=== PATIENT | female | born 1955 | race Caucasian/White ===

== ENCOUNTER → 2016-11-19 | Outpatient (CLI) | payer OTHER ==
--- NOTE | 2016-11-19 14:16 | RADRPT ---
EXAM DATE/TIME: 11/19/2016 10:32 [facility] COMPARISON: No previous studies available for comparison. INDICATIONS : Lower back pain radiating down left leg. MEDICAL HISTORY : Cervical cancer with scraping SURGICAL HISTORY : Hysterectomy. section. wrist surgery, breat augmentation, cervical scraping ENCOUNTER: [facility] ACUITY: 7-11 months PAIN SCORE: 3/10 LOCATION: Left leg TECHNIQUE: Multiplanar multisequence MRI of the lumbar spine was performed without contrast. FINDINGS: The most caudal appearing lumbar vertebra is numbered as L5. VERTEBRAE: Homogeneous signal. Normal alignment. CONUS: Normal level and configuration. Tiny cortical renal cysts are seen on the left. T12-L1: The thecal sac has a normal diameter. No evidence of disc bulge or protrusion. The neural foramina are patent bilaterally. L1-L2: The thecal sac has a normal diameter. No evidence of disc bulge or protrusion. The neural foramina are patent bilaterally. L2-L3: There is disc desiccation and disc space height loss with a minimal broad-based bulge. Lateral recess es, central canal, and neural foramina are patent. L3-L4: The thecal sac has a normal diameter. No evidence of disc bulge or protrusion. The neural foramina are patent bilaterally. L4-L5: There is a minimal broad-based disc bulge. Lateral recesses and central canal are patent. Mild ligame ntum flavum hypertrophy and bony hypertrophy of the facets. Neural foramina are patent. L5-S1: There is disc desiccation and disc space height loss with a broad-based disc bulge which abuts the le ft S1 nerve root within the lateral recess. Right lateral recess and central canal are patent. Neural foramina are patent. CONCLUSION: 1. Degenerative changes. The only area of neural impingement involves the left S1 nerve root within t he lateral recess due to a disc bulge. Central canal and neural foramina are otherwise patent. Karl Joe Jr., MD on November 19, 2016 at 14:09 Board Certified Radiologist. This report was verified electronically.
== END ==
LOC: HRAD 09:56
PROVIDERS: ATTEND Orthopaedic Surgery
DX: M51.26 Other intervertebral disc displacement, lumbar region (principal)
CPT/HCPCS: 72148

== ENCOUNTER → 2017-05-01 | Outpatient (CLI) | payer OTHER ==
--- NOTE | 2017-05-01 14:52 | RADRPT ---
EXAM DATE/TIME: 05/01/2017 14:42 [facility] COMPARISON: No previous studies available for comparison. INDICATIONS : Lightheaded and dizzy. MEDICAL HISTORY : Chronic obstructive pulmonary disease. Atrial fibrillation. SURGICAL HISTORY : None. ENCOUNTER: Initial ACUITY: 7 - 11 months PAIN SCORE: 0/10 LOCATION: Bilateral chest FINDINGS: PA and lateral views of the chest demonstrate the lungs to be symmetrically aerated without evidence of mass, infiltrate or effusion. The cardiomediastinal contours are unremarkable. Osseous structure s are intact. CONCLUSION: No acute cardiopulmonary disease. Karl Trujillo MD on May 01, 2017 at 14:50 Board Certified Radiologist. This report was verified electronically.
== END ==
LOC: HRAD 14:23
PROVIDERS: ATTEND Family Medicine
DX: Z87.891 Personal history of nicotine dependence (principal)
CPT/HCPCS: 71020

== ENCOUNTER 2017-06-15 12:00 | Emergency (ER) | payer OTHER ==
[~2017-06-15 12:00] MED LIST: ASPI1TAB69 PO; CLON0.5T PO; CYCL10TA PO; GABA600T PO; VARE1PAK3 PO
[2017-06-15 12:01] VITALS: BP 146/70; PULSE 94; RESP 16; TEMP 98; O2SAT 96
--- NOTE | 2017-06-15 12:12 | PD ---
HPI Chief Complaint: GI Complaint Time Seen by Provider: 12:11 Travel History International Travel<30 days: No Contact w/Intl Traveler<30days: No Traveled to known affect area: No History of Present Illness HPI 62-year-old female presents emergency department for evaluation of multiple complaints. Patient states that she has a history of at least 8 TIAs. She believes that she had a TIA on Thursday, 3 days ago. She states that she began having difficulty speaking. This resolved on its own but she states she has had a headache with dizziness throughout the week and with associated nausea and vomited one time. She reports contacting Dr. Diez her primary care provider, with whom she has a 4:10 PM appointment today and tells me she was advised to come to the emergency department. Patient denies any new focal deficits or weakness. She denies a chest or tightness. No difficulty breathing. She has no other symptoms to report. PFSH Past Medical History Cardiovascular Problems: Yes ("Hole in my heart") COPD: Yes Cerebrovascular Accident: Yes Respiratory: Yes (COPD) ?: Not Past Surgical History Gynecologic Surgery: Yes ( X2) Hysterectomy: Yes Other Surgery: Yes (BREAST AUGMENTATION X 3 ) Social History Alcohol Use: Yes Tobacco Use: Yes (1 PPD) Substance Use: No Allergies-Medications (Allergen,Severity, Reaction): Coded Allergies: No Known Allergies (Verified Adverse Reaction, Unknown, 06/15/17) Reported Meds & Prescriptions Reported Meds & Active Scripts Active Diflucan (Fluconazole) 150 Mg Tab 150 Mg PO ONCE Zofran Odt (Ondansetron Odt) 4 Mg Tab 4 Mg SL Q8HR PRN Clonazepam 0.5 Mg Tab 0.5 Mg PO TID Chantix Starting Month Salvador (Varenicline) 0.5 mg X 11 & 1 mg X 42 Pack 1 Tab PO DIRECTED Flexeril (Cyclobenzaprine HCl) 10 Mg Tab 10 Mg PO TID Gabapentin 600 Mg Tab 600 Mg PO BID Reported Aspirin 81 Mg Tabdr 81 Mg PO DAILY Review of Systems Except as stated in HPI: all other systems reviewed are Neg Physical Exam Narrative GENERAL: Well-nourished female patient, ambulatory with a nonantalgic gait, no acute distress. SKIN: Focused skin assessment warm/dry. HEAD: Atraumatic. Normocephalic. EYES: Pupils equal and round. No scleral icterus. No injection or drainage. ENT: No nasal bleeding or discharge. Mucous membranes pink and moist. NECK: Trachea midline. No JVD. CARDIOVASCULAR: Regular rate and rhythm. No murmur appreciated. RESPIRATORY: No accessory muscle use. Clear to auscultation. Breath sounds equal bilaterally. GASTROINTESTINAL: Abdomen soft, non-tender, nondistended. Hepatic and splenic margins not palpable. MUSCULOSKELETAL: No obvious deformities. No clubbing. No cyanosis. No edema. NEUROLOGICAL: Awake and alert. No obvious cranial nerve deficits. Motor grossly within normal limits. Normal speech. Pronator drift. Data Data Last Documented VS Vital Signs Date Time Temp Pulse Resp B/P (MAP) Pulse Ox O2 Delivery O2 Flow Rate FiO2 06/15/17 15:32 06/15/17 13:38 18 06/15/17 13:38 100 Room Air 06/15/17 12:01 98.0 94 Orders Orders Electrocardiogram (06/15/17 12:26) Prothrombin Time / Inr (Pt) (06/15/17 12:26) Act Partial Throm Time (Ptt) (06/15/17 12:26) Complete Blood Count With Diff (06/15/17 12:26) Comprehensive Metabolic Panel (06/15/17 12:26) Urinalysis - C+S If Indicated (06/15/17 12:26) Ct Brain W/O Iv Contrast(Rout) (06/15/17 12:26) Chest, Single Ap (06/15/17 12:26) Ecg Monitoring (06/15/17 12:26) Iv Access Insert/Monitor (06/15/17 12:26) Oximetry (06/15/17 12:26) Sodium Chloride 0.9% Flush (Ns Flush) (06/15/17 12:30) Sodium Chlor 0.9% 1000 Ml Inj (Ns 1000 M (06/15/17 12:30) Ondansetron Inj (Zofran Inj) (06/15/17 12:30) Urine Culture (06/15/17 13:30) Ed Discharge Order (06/15/17 14:51) Labs Laboratory Tests Test 06/15/17 13:30 White Blood Count 4.7 TH/MM3 Red Blood Count 4.68 MIL/MM3 Hemoglobin 15.3 GM/DL Hematocrit 44.3 % Mean Corpuscular Volume 94.7 FL Mean Corpuscular Hemoglobin 32.7 PG Mean Corpuscular Hemoglobin Concent 34.5 % Red Cell Distribution Width 13.6 % Platelet Count 203 TH/MM3 Mean Platelet Volume 7.7 FL Neutrophils (%) (Auto) 49.0 % Lymphocytes (%) (Auto) 37.8 % Monocytes (%) (Auto) 9.7 % Eosinophils (%) (Auto) 2.6 % Basophils (%) (Auto) 0.9 % Neutrophils # (Auto) 2.3 TH/MM3 Lymphocytes # (Auto) 1.8 TH/MM3 Monocytes # (Auto) 0.5 TH/MM3 Eosinophils # (Auto) 0.1 TH/MM3 Basophils # (Auto) 0.0 TH/MM3 CBC Comment DIFF FINAL Differential Comment Prothrombin Time 10.0 SEC Prothromb Time International Ratio 1.0 RATIO Activated Partial Thromboplast Time 25.0 SEC Urine Color LIGHT-YELLOW Urine Turbidity CLEAR Urine pH 5.0 Urine Specific [place] 1.003 Urine Protein NEG mg/dL Urine Glucose (UA) NEG mg/dL Urine Ketones NEG mg/dL Urine Occult Blood NEG Urine Nitrite NEG Urine Bilirubin NEG Urine Urobilinogen LESS THAN 2.0 MG/DL Urine Leukocyte Esterase NEG Urine Squamous Epithelial Cells <1 /hpf Urine Bacteria RARE /hpf Microscopic Urinalysis Comment CATH-CULTURE IND Blood Urea Nitrogen 5 MG/DL Creatinine 0.68 MG/DL Random Glucose 92 MG/DL Total Protein 7.2 GM/DL Albumin 3.9 GM/DL Calcium Level 8.9 MG/DL Alkaline Phosphatase 87 U/L Aspartate Amino Transf (AST/SGOT) 33 U/L Alanine Aminotransferase (ALT/SGPT) 25 U/L Total Bilirubin 0.4 MG/DL Sodium Level 130 MEQ/L Potassium Level 4.3 MEQ/L Chloride Level 96 MEQ/L Carbon Dioxide Level 28.8 MEQ/L Anion Gap 5 MEQ/L Estimat Glomerular Filtration Rate 88 ML/MIN [facility] Medical Decision Making Medical Screen Exam Complete: Yes Emergency Medical Condition: Yes Medical Record Reviewed: Yes Differential Diagnosis TIA versus CVA versus vertigo versus electrolyte-abnormality Narrative Course 62-year-old female presents versus department for evaluation. Patient appears without distress. Neuro exam is nonfocal. Laboratory Tests Test 06/15/17 13:30 White Blood Count 4.7 TH/MM3 Red Blood Count 4.68 MIL/MM3 Hemoglobin 15.3 GM/DL Hematocrit 44.3 % Mean Corpuscular Volume 94.7 FL Mean Corpuscular Hemoglobin 32.7 PG Mean Corpuscular Hemoglobin Concent 34.5 % Red Cell Distribution Width 13.6 % Platelet Count 203 TH/MM3 Mean Platelet Volume 7.7 FL Neutrophils (%) (Auto) 49.0 % Lymphocytes (%) (Auto) 37.8 % Monocytes (%) (Auto) 9.7 % Eosinophils (%) (Auto) 2.6 % Basophils (%) (Auto) 0.9 % Neutrophils # (Auto) 2.3 TH/MM3 Lymphocytes # (Auto) 1.8 TH/MM3 Monocytes # (Auto) 0.5 TH/MM3 Eosinophils # (Auto) 0.1 TH/MM3 Basophils # (Auto) 0.0 TH/MM3 CBC Comment DIFF FINAL Differential Comment Prothrombin Time 10.0 SEC Prothromb Time International Ratio 1.0 RATIO Activated Partial Thromboplast Time 25.0 SEC Urine Color LIGHT-YELLOW Urine Turbidity CLEAR Urine pH 5.0 Urine Specific [place] 1.003 Urine Protein NEG mg/dL Urine Glucose (UA) NEG mg/dL Urine Ketones NEG mg/dL Urine Occult Blood NEG Urine Nitrite NEG Urine Bilirubin NEG Urine Urobilinogen LESS THAN 2.0 MG/DL Urine Leukocyte Esterase NEG Urine Squamous Epithelial Cells <1 /hpf Urine Bacteria RARE /hpf Microscopic Urinalysis Comment CATH-CULTURE IND Blood Urea Nitrogen 5 MG/DL Creatinine 0.68 MG/DL Random Glucose 92 MG/DL Total Protein 7.2 GM/DL Albumin 3.9 GM/DL Calcium Level 8.9 MG/DL Alkaline Phosphatase 87 U/L Aspartate Amino Transf (AST/SGOT) 33 U/L Alanine Aminotransferase (ALT/SGPT) 25 U/L Total Bilirubin 0.4 MG/DL Sodium Level 130 MEQ/L Potassium Level 4.3 MEQ/L Chloride Level 96 MEQ/L Carbon Dioxide Level 28.8 MEQ/L Anion Gap 5 MEQ/L Estimat Glomerular Filtration Rate 88 ML/MIN Last Impressions Head CT 06/15/17 1226 Signed Impressions: Service Date/Time: Thursday, June 15, 2017 13:57 - CONCLUSION: No acute intracranial disease. Giorgio Gandhi MD Chest X-Ray 06/15/17 1226 Signed Impressions: Service Date/Time: Thursday, June 15, 2017 12:40 - CONCLUSION: 1. COPD. 2. No evidence of acute process. Seferino Mae MD I have discussed the patient might physician. I have also discussed the patient with Dr. Dominguez, resident physician warehouse distribution specialist. He has recommended discharge to follow-up with her primary care provider Dr. Diez. Patient states she'll keep her 4:10 appointment for today. Diagnosis Primary Impression: Dizziness Referrals: Primary Care Physician Patient Instructions: Dizziness (ED), General Instructions Additional Instructions: Follow-up with your primary care provider within the next 2-3 days Continue medications as are he prescribed Return immediately with any acute worsening symptoms Med/Other Pt SpecificInfo: No Change to Meds Disposition: 01 DISCHARGE HOME Condition: Stable Margarita Mayen Jun 15, 2017 12:12
[2017-06-15] MEDS ORDERED: SODIUM CHLOR 0.9% 1000 ML INJ 1,000 ML IV ONE (12:30)
[2017-06-15] MEDS ORDERED: SODIUM CHLORIDE 0.9% FLUSH 10 ML FLUSH IVF PRN (12:30)
[2017-06-15] MEDS ORDERED: ONDANSETRON HCL 4 MG/2 ML VIAL IV PUSH ONE (12:30)
--- NOTE | 2017-06-15 13:10 | RADRPT ---
EXAM DATE/TIME: 06/15/2017 12:40 [facility] COMPARISON: No previous studies available for comparison. INDICATIONS : Short of breath. MEDICAL HISTORY : Chronic obstructive pulmonary disease. multiple TIAs, Atrial fibrillation, hole in her heart. SURGICAL HISTORY : None. ENCOUNTER: Initial ACUITY: 1 day PAIN SCORE: 0/10 LOCATION: Bilateral chest FINDINGS: A single view of the chest demonstrates the lungs to be hyperaerated without evidence of mass, infilt rate or effusion. The cardiomediastinal contours are unremarkable. Osseous structures are intact. CONCLUSION: 1. COPD. 2. No evidence of acute process. Seferino Mae MD on June 15, 2017 at 13:07 Board Certified Radiologist. This report was verified electronically.
[2017-06-15 13:38] VITALS: O2SAT 100
[2017-06-15 13:47] LABS: AUTOMATED NEUTROPHIL # 2.3 TH/MM3 (1.8-7.7); BASOPHIL % 0.9 % (0.0-2.0); EOSINOPHIL # 0.1 TH/MM3 (0-0.4); EOSINOPHIL % 2.6 % (0.0-4.0); HEMATOCRIT 44.3 % (35.0-46.0); HEMO FLAGS DIFF FINAL; LYMPH % 37.8 % (9.0-44.0); LYMPHOCYTE # 1.8 TH/MM3 (1.0-4.8); MEAN CELL VOLUME 94.7 FL (80.0-100.0); MEAN CORPUSCULAR HEMOGLOBIN 32.7 PG (27.0-34.0); MEAN CORPUSCULAR HGB CONC 34.5 % (32.0-36.0); MONO % 9.7 % (0.0-8.0); PLATELET COUNT 203 TH/MM3 (150-450); RED BLOOD COUNT 4.68 MIL/MM3 (4.00-5.30); RED CELL DISTRIBUTION WIDTH 13.6 % (11.6-17.2); WHITE BLOOD COUNT 4.7 TH/MM3 (4.0-11.0)
[2017-06-15 14:01] LABS: BACTERIA, URINE RARE /hpf; BLOOD, URINE NEG (NEG); COMMENT (UR) CATH-CULTURE IND; CULTURE IF INDICATED CATH CULTURE IND; GLUCOSE,URINE NEG (NEG); KETONE, URINE NEG (NEG); NITRITE,URINE NEG (NEG); SQUAMOUS EPITHELIAL CELL URINE <1 /hpf (0-5); URINE COLOR LIGHT-YELLOW (YELLW/STRAW)
[2017-06-15 14:04] LABS: ALT (GPT) 25 U/L (10-53); ANION GAP 5 MEQ/L (5-15); AST (GOT) 33 U/L (15-37); BICARBONATE 28.8 MEQ/L (21.0-32.0); BLOOD UREA NITROGEN 5 MG/DL (7-18); CHLORIDE 96 MEQ/L (98-107); GLOMERULAR FILTRATION RATE 88 ML/MIN (>89); POTASSIUM 4.3 MEQ/L (3.5-5.1); SODIUM (NA) 130 MEQ/L (136-145)
[2017-06-15 14:06] LABS: ALKALINE PHOSPHATASE 87 U/L (45-117); TOTAL BILIRUBIN ADULT 0.4 MG/DL (0.2-1.0)
--- NOTE | 2017-06-15 14:09 | RADRPT ---
EXAM DATE/TIME: 06/15/2017 13:57 [facility] COMPARISON: No previous studies available for comparison. INDICATIONS : Dizziness. History of TIA. RADIATION DOSE: 31.31 CTDIvol (mGy) MEDICAL HISTORY : Cerebrovascular disease. Cardiovascular disease Chronic obstructive pulmonary disease. SURGICAL HISTORY : None. ENCOUNTER: Initial ACUITY: 1 day PAIN SCALE: 0/10 LOCATION: cranial TECHNIQUE: Multiple contiguous axial images were obtained of the head. Using automated exposure control and adj ustment of the mA and/or kV according to patient size, radiation dose was kept as low as reasonably a chievable to obtain optimal diagnostic quality images. DICOM format image data is available electro nically for review and comparison. FINDINGS: CEREBRUM: The ventricles are normal for age. No evidence of midline shift, mass lesion, hemorrhage or acute in farction. No extra-axial fluid collections are seen. POSTERIOR FOSSA: The cerebellum and brainstem are intact. The 4th ventricle is midline. The cerebellopontine angle i s unremarkable. EXTRACRANIAL: The visualized portion of the orbits is intact. SKULL: The calvaria is intact. No evidence of skull fracture. CONCLUSION: No acute intracranial disease. Giorgio Gandhi MD on June 15, 2017 at 14:06 Board Certified Radiologist. This report was verified electronically.
[2017-06-15] MEDS ORDERED: ZOFR4TAB3 SL (17:02)
[2017-06-15] MEDS ORDERED: DIFL150T PO (17:03)
--- NOTE | 2017-06-16 11:38 | EKG ---
Date Performed: 06/15/2017 Time Performed: 14:32:48 PTAGE: 62 years EKG: Sinus rhythm NONSPECIFIC T-WAVE ABNORMALITY BORDERLINE ECG NO PREVIOUS TRACING DOCTOR: Daron Ibrahim Interpretating Date/Time 06/16/2017 11:36:21
[2017-06-25] MEDS ORDERED: VANC125C3 PO (19:44)
== END 2017-06-15 15:33 | disposition home or self-care (01) ==
LOC: NEPE 12:00
DX: R42 Dizziness and giddiness (principal); R51 Headache; R82.71 Bacteriuria; R94.31 Abnormal electrocardiogram [ECG] [EKG]; F17.200 Nicotine dependence, unspecified, uncomplicated; Z86.73 Personal history of transient ischemic attack (TIA), and cerebral infarction without residual deficits
CPT/HCPCS: 70450; 71010; 80053; 81001; 85025; 85610; 85730; 87086; 93005; 96361; 96374; 99285; J2405; J7030

== ENCOUNTER 2017-09-10 03:56 | Emergency (ER) | payer OTHER ==
[~2017-09-10] VITALS: Ht 154.9 cm; Wt 60.0 kg
[~2017-09-10 03:56] MED LIST changes: +RANI1TAB5 PO; +VANC125C3 PO; +VENTAER INH; +ZOFR4TAB3 SL
[2017-09-10 04:06] VITALS: BP 142/75; PULSE 89; RESP 16; O2SAT 99
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
[2017-09-10 06:00] VITALS: BP 102/53; PULSE 72; RESP 14; O2SAT 97
[2017-09-10] MEDS ORDERED: ONDANSETRON HCL 4 MG/2 ML VIAL IV PUSH ONE (09:00)
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
[2017-09-10 10:12] VITALS: BP 115/61; PULSE 74; RESP 16; O2SAT 98
== END 2017-09-10 10:13 | disposition home or self-care (01) ==
LOC: NEPE 03:56
DX: F10.129 Alcohol abuse with intoxication, unspecified (principal); T40.1X1A Poisoning by heroin, accidental (unintentional), initial encounter; R11.0 Nausea; F32.9 Major depressive disorder, single episode, unspecified; J44.9 Chronic obstructive pulmonary disease, unspecified; F17.200 Nicotine dependence, unspecified, uncomplicated; Z79.82 Long term (current) use of aspirin; Z79.899 Other long term (current) drug therapy
CPT/HCPCS: 96374; 99284; J2405